=== PATIENT | female | born 1980 | race Caucasian/White ===

== ENCOUNTER 2017-07-10 19:27 | Emergency (ER) | payer OTHER, SELFPAY ==
[~2017-07-10] VITALS: Ht 154.9 cm; Wt 99.3 kg
[2017-07-10] MEDS ORDERED: SINGULAIR 10 MG10 M1 PO (19:47)
[2017-07-10] MEDS ORDERED: FLONASE 0.05%50 MCG NASAL (19:47)
[2017-07-10] MEDS ORDERED: ZANTAC 150MG T150 MG PO (19:47)
[2017-07-10] MEDS ORDERED: CLARITIN10 MG PO (19:47)
[2017-07-10 20:08] LABS: URINE BILIRUBIN NEGATIVE (Negative); URINE BLOOD NEGATIVE (Negative); URINE CLARITY CLEAR; URINE COLOR YELLOW; URINE GLUCOSE-RANDOM NEGATIVE (Negative); URINE KETONES TRACE (Negative); URINE LEUKOCYTES-REFLEX TRACE (Negative); URINE NITRITE-REFLEX NEGATIVE (Negative); URINE PROTEIN NEGATIVE (Negative); URINE SPECIFIC GRAVITY >= 1.030 (1.005-1.030); URINE UROBILINOGEN 0.2 E.U./dl (0.2-1.0)
[2017-07-10 20:11] LABS: ABSOLUTE BASOPHILS 0.1 thou/uL (0.0-0.2); ABSOLUTE EOSINOPHILS 0.2 thou/uL (0.0-0.7); ABSOLUTE LYMPHOCYTES 3.3 thou/uL (0.8-5.3); ABSOLUTE MONOCYTES 0.5 thou/uL (0.0-1.2); BASOPHILS 1.3 %; EOSINOPHILS 2.6 %; HEMATOCRIT 42.4 % (37.0-47.0); HEMOGLOBIN 14.6 gm/dL (12.0-15.0); LYMPHOCYTES 40.8 %; MCH 30.1 pg (26.0-34.0); MCHC 34.5 g/dL (28.0-37.0); MCV 87.5 fL (80.0-100.0); MONOCYTES 5.7 %; MPV 7.5 fl. (7.2-11.1); NUCLEATED RBCS 0 /100WBC; PLATELET COUNT* 416 thou/uL (150-400); POLYS 49.6 %; RBC 4.84 mil/uL (4.20-5.00); RDW-CV 13.1 % (10.5-14.5); WBC 8.1 thou/uL (4.0-11.0)
[2017-07-10 20:13] LABS: BACTERIA-REFLEX >30 Many /HPF (None Seen); CRYSTALS None Seen /LPF (None Seen); MUCUS 4-6 Moderate strn/LPF (None Seen); SQUAMOUS >10 Many /LPF (0-3); URINE RBC 3-10 Few /HPF (0-2); URINE WBC-REFLEX 6-15 Few /HPF (0-5)
[2017-07-10 20:14] LABS: CASTS None Seen /LPF (None Seen)
[2017-07-10 20:16] LABS: CALCIUM 8.9 mg/dL (8.5-10.1); CREATININE 1.2 mg/dL (0.6-1.3); POTASSIUM 3.8 mmol/L (3.5-5.1)
[2017-07-10 20:20] LABS: ALBUMIN 3.7 g/dL (3.4-5.0); TOTAL BILIRUBIN 0.2 mg/dL (<0.1-1.0); TOTAL PROTEIN 8.4 g/dL (6.4-8.2)
[2017-07-10] MEDS ORDERED: BACTRIM DS TAB1 EACH PO (21:16)
[2017-07-10 21:35] VITALS: BP 151/88
== END 2017-07-10 21:37 | disposition home or self-care (01) ==
LOC: M.ERS 19:27
PROVIDERS: Nurse Practitioner Family
DX: N30.90 Cystitis, unspecified without hematuria (principal)